=== PATIENT | female | born 1985 | race Caucasian/White ===

== ENCOUNTER → 2016-08-03 | Outpatient (CLI) | payer BC | END | disposition home or self-care (01) | LOC: LABWHC1 10:20 | PROVIDERS: ATTEND Internal Medicine | DX: E03.9 Hypothyroidism, unspecified (principal) | CPT/HCPCS: 36415; 84439; 84443 ==

== ENCOUNTER → 2016-10-04 | Outpatient (CLI) | payer BC ==
--- NOTE | 2016-10-04 16:35 | US ---
EXAMINATION TYPE: US thyroid st tissue head/neck DATE OF EXAM: 10/04/2016 4:06 PM COMPARISON: NONE CLINICAL HISTORY: E04.1 Thyroid Nodule. GLAND SIZE: Right Lobe: 2.3 x 0.5 x 1.0 cm Overall Parenchyma: heterogenous Left Lobe: 1.4 x 0.3 x 0.6 cm Overall Parenchyma: heterogeneous Isthmus Thickness: 0.3 cm NODULES RIGHT: # of nodules measured on right: 0 LEFT: # of nodules measured on left: 0 ISTHMUS: # of nodules measured in the isthmus: 1 1. 0.9 X 0.4 x 0.8 cm anechoic cystic nodule at the right pole with poorly defined margins. This n odule is wider than tall and shows intranodular vascularity. no prior Bilateral neck scanned, no evidence of lymphadenopathy, small bilateral lobes. IMPRESSION: 1. Subcentimeter thyroid nodule isthmus.
== END | disposition home or self-care (01) ==
LOC: RADUSMAIN 15:44
PROVIDERS: ATTEND Family Medicine
DX: E04.1 Nontoxic single thyroid nodule (principal)
CPT/HCPCS: 76536

== ENCOUNTER → 2016-12-22 | Outpatient (CLI) | payer BC | END | disposition home or self-care (01) | LOC: LABWHC1 11:27 | PROVIDERS: ATTEND Internal Medicine | DX: E89.0 Postprocedural hypothyroidism (principal) | CPT/HCPCS: 36415; 84443 ==

== ENCOUNTER → 2017-03-02 | Outpatient (CLI) | payer BC | END | disposition home or self-care (01) | LOC: LABWHC1 13:02 | PROVIDERS: ATTEND Internal Medicine | DX: E89.0 Postprocedural hypothyroidism (principal) | CPT/HCPCS: 36415; 84443 ==

== ENCOUNTER → 2017-04-09 | Outpatient (CLI) | payer BC ==
--- NOTE | 2017-04-09 21:21 | MR ---
EXAMINATION TYPE: MR brain/cspine wo DATE OF EXAM: 04/09/2017 COMPARISON: MRI brain April 11, 2016. MRI cervical spine same date. 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 TECHNIQUE: Multiplanar, multisequence imaging of the cervical spine, brain and brainstem are all perf ormed without IV contrast. FINDINGS: BRAIN: Diffusion weighted images demonstrate no evidence of a recent infarct or other diffusion abnormality. There is no extraaxial fluid collection or significant white matter signal abnormality. The ventricu lar system and cisternal spaces are normal in size and appearance. The brain volume is age appropria te. Midline structures demonstrate normal morphology. Artifact from low occipital postsurgical change or Chiari decompression is redemonstrated. The craniocervical junction remains within normal limits. Th ere remains somewhat small caliber distal vertebral artery. There are patent posterior communicating arteries noted bilaterally. The globes are intact bilaterally. Mild mucosal thickening involving ethm oid sinuses is seen bilaterally. Moderate mucosal thickening in left maxillary sinus redemonstrated. There is mild mucosal thickening in right maxillary sinus redemonstrated. There is new small air-flui d level in left maxillary sinus noted. IMPRESSION: Postsurgical changes from successful Chiari decompression surgery are redemonstrated. The re is persistent chronic paranasal sinus disease, new mild acute left maxillary sinusitis cannot be e xcluded. Clinical correlation advised. C-SPINE: FINDINGS: Sagittal images of the cervical spine show the craniocervical junction to remain within nor mal limits after posterior decompression. The cervical and upper thoracic spinal cord is normal in c aliber and course. There is redemonstration of syrinx from inferior C5 level through mid T1 level fe lt unchanged in size and appearance from prior. Vertebral alignment is satisfactory and stable. The vertebral body and intravertebral disk heights are normal. No large posterior disc herniations are p resent. The bone marrow signal intensity is within normal limits. No significant spurring is seen. Axial images show the C2-C3, C3-C4, C4-C5 levels to remain within normal limits. Axial images at C5-C6 level show broad disc bulge minimally effacing anterior thecal sac and causing asymmetric mild left-sided neural foraminal narrowing, right-sided neural foramen is patent. Syrinx a t this level noted. Axial images at C6-C7 and C7-T1 level show continuation of syrinx which is more prominent at these le vels but unchanged from prior study. Bilateral neural foramina are patent. No significant disc hernia tion is present. Similar prior study thyroid gland is not well-visualized. There is cystic lesion anteriorly just righ t of midline on axial image 5 Measuring 10 x 3 mm stable or slightly less prominent versus prior stud y. Correlate clinically. IMPRESSION: Stable small to moderate length syrinx and small disc herniation C5-C6 level.
== END | disposition home or self-care (01) ==
LOC: RADMRIMAIN 19:39
PROVIDERS: ATTEND Neurological Surgery
DX: Q07.9 Congenital malformation of nervous system, unspecified (principal); M50.222 Other cervical disc displacement at C5-C6 level; Z98.890 Other specified postprocedural states
CPT/HCPCS: 70551; 72141

== ENCOUNTER → 2017-04-10 | Outpatient (CLI) | payer BC ==
--- NOTE | 2017-04-10 21:01 | MR ---
EXAMINATION TYPE: MR delatorre wo con DATE OF EXAM: 04/10/2017 8:53 PM COMPARISON: 05/15/2016 HISTORY: follow up for syrinx Multiplanar MultiSpin echo imaging of the thoracic spine was performed. Disc spaces: No evidence for herniation protrusion or significant degenerative disc disease. Spinal canal: No evidence for canal stenosis. No intrinsic or extrinsic lesion. Thoracic spinal cord: Again noted is a 3 mm in thickness syrinx which extends from T7 through T10 unc hanged from prior examination. There is no evidence for underlying mass. Previously described cervica l syrinx noted. Paraspinal soft tissues: No evidence for paraspinal mass. No destructive lesions seen. Vertebral segments: T9 hemangioma identified. No evidence for compression fracture. IMPRESSION: 1. Stable thoracic syrinx. EXAMINATION TYPE: MR delatorre wo con DATE OF EXAM: 04/10/2017 8:53 PM COMPARISON: 05/15/2016 HISTORY: follow up for syrinx Multiplanar, MultiSpin echo imaging of the lumbar spine was performed. L1-L2: Normal disc appearance without desiccation. No herniation, protrusion or disc bulging. No ca nal stenosis is present. Foramina are patent bilaterally. L2-L3: Normal disc appearance without desiccation. No herniation, protrusion or disc bulging. No ca nal stenosis is present. Foramina are patent bilaterally. L3-L4: Normal disc appearance without desiccation. Mild posterocentral disc bulge without herniation protrusion or central stenosis. Foramina are patent bilaterally. No canal stenosis is present. Halle rosalba are patent bilaterally. L4-L5: Normal disc appearance without desiccation. No herniation, protrusion or disc bulging. No ca nal stenosis is present. Foramina are patent bilaterally. L5-S1: Normal disc appearance without desiccation. No herniation, protrusion or disc bulging. No ca nal stenosis is present. Foramina are patent bilaterally. Lumbar segments are intact. No paraspinal masses are identified. Conus medullaris has a normal appe arance. IMPRESSION: 1. Mild disc bulging posterocentrally at L3-4.
== END | disposition home or self-care (01) ==
LOC: RADMRIMAIN 19:41
PROVIDERS: ATTEND Neurological Surgery
DX: Q07.9 Congenital malformation of nervous system, unspecified (principal); M51.26 Other intervertebral disc displacement, lumbar region
CPT/HCPCS: 72146; 72148

== ENCOUNTER → 2017-08-18 | Outpatient (CLI) | payer BC | END | disposition home or self-care (01) | LOC: LABWHC1 12:36 | PROVIDERS: ATTEND Internal Medicine | DX: E89.0 Postprocedural hypothyroidism (principal) | CPT/HCPCS: 36415; 84443 ==

== ENCOUNTER → 2017-12-19 | Outpatient (CLI) | payer BC | END | disposition home or self-care (01) | LOC: LABWHC1 12:57 | PROVIDERS: ATTEND Internal Medicine | DX: E89.0 Postprocedural hypothyroidism (principal) | CPT/HCPCS: 36415; 84443 ==

== ENCOUNTER 2018-04-30 10:20 | Emergency (ER) | payer BC ==
[2018-04-30] MEDS ORDERED: MORPHINE SULFATE 2 MG/ML SYRINGE IVP STA (11:28)
--- NOTE | 2018-04-30 11:29 | ED ---
General Adult HPI - General Chief complaint: Back Pain/Injury Stated complaint: middle back pain, numbness in legs Time Seen by Provider: 04/30/18 10:50 Source: patient, RN notes reviewed Mode of arrival: ambulatory Limitations: no limitations - History of Present Illness Initial comments: This is a 33-year-old female who presents to the emergency department complaining of having a fever starting last Sunday and she believes it broke over the weekend even though she wasn't feeling back to her baseline she did not believe she had a fever. Patient states she's had body aches for about 3-4 days particularly in her back. Patient states she has a past medical history of having a surgery for Chiari Arnold malformation. And she always has some body aches because of this. Patient states as of last night she had a fever again 101. Patient states she took Tylenol this morning. Patient states she went to an urgent care yesterday and they saw a few white cells in the urine so they gave her a shot of antibiotics but did not send her home with any antibiotics. Patient states today she continues to have myalgias everywhere but in particular in her mid back. She denies any areas of numbness or weakness. Patient does complain of a headache as well. Patient has some stiffness in her neck but is able to move with full range of motion. Patient denies any chest pain or difficulty breathing. Patient denies any cough. Patient denies any abdominal pain patient denies nausea vomiting diarrhea. Patient denies any dysuria hematuria urinary frequency. - Related Data Home Medications Medication Instructions Recorded Confirmed Levothyroxine Sodium [Synthroid] 100 mcg PO MOTUWETHFRSA 04/30/18 04/30/18 Levothyroxine Sodium [Synthroid] 200 mcg PO GARAY 04/30/18 04/30/18 Allergies Allergy/AdvReac Type Severity Reaction Status Date / Time No Known Allergies Allergy Verified 04/30/18 10:59 Review of Systems ROS Statement: Those systems with pertinent positive or pertinent negative responses have been documented in the HPI. ROS Other: All systems not noted in ROS Statement are negative. Past Medical History Past Medical History: Thyroid Disorder Additional Past Medical History / Comment(s): hypothyroidism History of Any Multi-Drug Resistant Organisms: None Reported Past Surgical History: No Surgical Hx Reported Additional Past Surgical History / Comment(s): brain surgery in 2015, radiation to thyroid in march 2016 Past Psychological History: No Psychological Hx Reported Smoking Status: Never smoker Past Alcohol Use History: Occasional Past Drug Use History: Marijuana General Exam - General Exam Comments Initial Comments: GENERAL: Patient is well-developed and well-nourished. Patient is nontoxic and well- hydrated and is in mild distress. ENT: Neck is soft and supple. No significant lymphadenopathy is noted. Oropharynx is clear. Moist mucous membranes. Neck has full range of motion it does elicit some pain in the trapezius muscles area patient also is pain to palpation of the muscles but she does have full range of motion. EYES: The sclera were anicteric and conjunctiva were pink and moist. Extraocular movements were intact and pupils were equal round and reactive to light. Eyelids were unremarkable. PULMONARY: Unlabored respirations. Good breath sounds bilaterally. No audible rales rhonchi or wheezing was noted. CARDIOVASCULAR: There is a regular rate and rhythm without any murmurs gallops or rubs. ABDOMEN: Soft and nontender with normal bowel sounds. No palpable organomegaly was noted. There is no palpable pulsatile mass. SKIN: Skin is clear with no lesions or rashes and otherwise unremarkable. NEUROLOGIC: Patient is alert and oriented x3. Cranial nerves II through XII are grossly intact. Motor and sensory are also intact. Normal speech, volume and content. Symmetrical smile. MUSCULOSKELETAL: Normal extremities with adequate strength and full range of motion. LYMPHATICS: No significant lymphadenopathy is noted PSYCHIATRIC: Normal psychiatric evaluation. Normal interpersonal interactions appears functionally intact in deals appropriately with others. No signs of depression. No signs of anxiety. Limitations: no limitations Course Vital Signs 04/30/18 04/30/18 04/30/18 10:42 12:01 12:10 Temperature 98.1 F Pulse Rate 91 76 Respiratory 18 26 H 11 L Rate Blood Pressure 118/80 128/85 O2 Sat by Pulse 100 100 Oximetry 04/30/18 04/30/18 04/30/18 12:11 12:20 12:30 Temperature Pulse Rate 74 73 77 Respiratory 16 12 11 L Rate Blood Pressure 128/85 128/85 128/85 O2 Sat by Pulse 97 100 99 Oximetry 04/30/18 04/30/18 04/30/18 12:40 12:50 13:00 Temperature Pulse Rate 74 Respiratory 12 Rate Blood Pressure 128/85 128/85 128/85 O2 Sat by Pulse 100 Oximetry 04/30/18 04/30/18 04/30/18 13:10 13:20 13:30 Temperature Pulse Rate Respiratory Rate Blood Pressure 128/85 128/85 128/85 O2 Sat by Pulse Oximetry 04/30/18 04/30/18 15:57 16:11 Temperature 98.6 F 98.6 F Pulse Rate 79 79 Respiratory 20 20 Rate Blood Pressure 133/90 133/90 O2 Sat by Pulse 99 99 Oximetry Medical Decision Making - Medical Decision Making EKG shows normal sinus rhythm at 75 bpm NH interval is 138 QRS is 82 QT interval 380 QTC is 424. EKG shows no ST segment elevation or depression or T wave abnormalities are noted. CT of the brain shows no acute abnormality. Chest x-ray shows no acute normalities. I spoke with the nurse for Dr. Bao cameron at [facility] her neurosurgeon. They did not think from my description that the fever and back pain was related in any way to the patient's previous surgery or congenital abnormality Patient got some relief from morphine and Toradol is but she was still having pain secondary another shot of morphine. Patient continued to have pain after the morphine I suggested the patient stay but she wanted to go home because she had pain meds and muscle relaxants at home that she wanted to take. Patient is having no neurologic deficit this time. - Lab Data Result diagrams: 04/30/18 12:11 04/30/18 12:11 Lab Results 04/30/18 04/30/18 04/30/18 Range/Units 12:11 12:11 12:11 WBC 6.1 (3.8-10.6) k/uL RBC 4.59 (3.80-5.40) m/uL Hgb 13.3 (11.4-16.0) gm/dL Hct 40.2 (34.0-46.0) % MCV 87.8 (80.0-100.0) fL MCH 29.0 (25.0-35.0) pg MCHC 33.0 (31.0-37.0) g/dL RDW 13.5 (11.5-15.5) % Plt Count 199 (150-450) k/uL Neutrophils % (Manual) 49 % Band Neutrophils % 1 % Lymphocytes % (Manual) 40 % Monocytes % (Manual) 8 % Eosinophils % (Manual) 2 % Neutrophils # (Manual) 3.00 (1.3-7.7) k/uL Lymphocytes # (Manual) 2.44 (1.0-4.8) k/uL Monocytes # (Manual) 0.49 (0-1.0) k/uL Eosinophils # (Manual) 0.12 (0-0.7) k/uL Nucleated RBCs 0 (0-0) /100 WBC Manual Slide Review Performed Reactive Lymphocytes Present RBC Morphology Normal PT (9.0-12.0) sec INR (<1.2) APTT (22.0-30.0) sec Sodium 139 (137-145) mmol/L Potassium 4.0 (3.5-5.1) mmol/L Chloride 105 (98-107) mmol/L Carbon Dioxide 26 (22-30) mmol/L Anion Gap 8 mmol/L BUN 12 (7-17) mg/dL Creatinine 0.93 (0.52-1.04) mg/dL Est GFR (CKD-EPI)AfAm >90 (>60 ml/min/1.73 sqM) Est GFR (CKD-EPI)NonAf 82 (>60 ml/min/1.73 sqM) Glucose 86 (74-99) mg/dL Plasma Lactic Acid Carlos (0.7-2.0) mmol/L Calcium 9.0 (8.4-10.2) mg/dL Total Bilirubin 0.6 (0.2-1.3) mg/dL AST 36 (14-36) U/L ALT 40 (9-52) U/L Alkaline Phosphatase 55 (38-126) U/L Total Protein 6.3 (6.3-8.2) g/dL Albumin 3.6 (3.5-5.0) g/dL Urine Color Urine Appearance (Clear) Urine pH (5.0-8.0) Ur Specific Chase (1.001-1.035) Urine Protein (Negative) Urine Glucose (UA) (Negative) Urine Ketones (Negative) Urine Blood (Negative) Urine Nitrite (Negative) Urine Bilirubin (Negative) Urine Urobilinogen (<2.0) mg/dL Ur Leukocyte Esterase (Negative) Urine RBC (0-5) /hpf Urine WBC (0-5) /hpf Ur Squamous Epith Cells (0-4) /hpf Urine Bacteria (None) /hpf Urine Mucus (None) /hpf Influenza Type A RNA Not Detected (Not Detectd) Influenza Type B (PCR) Not Detected (Not Detectd) 04/30/18 04/30/18 04/30/18 Range/Units 12:11 12:11 12:11 WBC (3.8-10.6) k/uL RBC (3.80-5.40) m/uL Hgb (11.4-16.0) gm/dL Hct (34.0-46.0) % MCV (80.0-100.0) fL MCH (25.0-35.0) pg MCHC (31.0-37.0) g/dL RDW (11.5-15.5) % Plt Count (150-450) k/uL Neutrophils % (Manual) % Band Neutrophils % % Lymphocytes % (Manual) % Monocytes % (Manual) % Eosinophils % (Manual) % Neutrophils # (Manual) (1.3-7.7) k/uL Lymphocytes # (Manual) (1.0-4.8) k/uL Monocytes # (Manual) (0-1.0) k/uL Eosinophils # (Manual) (0-0.7) k/uL Nucleated RBCs (0-0) /100 WBC Manual Slide Review Reactive Lymphocytes RBC Morphology PT 9.7 (9.0-12.0) sec INR 1.0 (<1.2) APTT 25.5 (22.0-30.0) sec Sodium (137-145) mmol/L Potassium (3.5-5.1) mmol/L Chloride (98-107) mmol/L Carbon Dioxide (22-30) mmol/L Anion Gap mmol/L BUN (7-17) mg/dL Creatinine (0.52-1.04) mg/dL Est GFR (CKD-EPI)AfAm (>60 ml/min/1.73 sqM) Est GFR (CKD-EPI)NonAf (>60 ml/min/1.73 sqM) Glucose (74-99) mg/dL Plasma Lactic Acid Carlos 1.1 (0.7-2.0) mmol/L Calcium (8.4-10.2) mg/dL Total Bilirubin (0.2-1.3) mg/dL AST (14-36) U/L ALT (9-52) U/L Alkaline Phosphatase (38-126) U/L Total Protein (6.3-8.2) g/dL Albumin (3.5-5.0) g/dL Urine Color Yellow Urine Appearance Cloudy H (Clear) Urine pH 6.0 (5.0-8.0) Ur Specific Chase 1.027 (1.001-1.035) Urine Protein 1+ H (Negative) Urine Glucose (UA) Negative (Negative) Urine Ketones Negative (Negative) Urine Blood Trace H (Negative) Urine Nitrite Negative (Negative) Urine Bilirubin Negative (Negative) Urine Urobilinogen <2.0 (<2.0) mg/dL Ur Leukocyte Esterase Trace H (Negative) Urine RBC 1 (0-5) /hpf Urine WBC 2 (0-5) /hpf Ur Squamous Epith Cells 32 H (0-4) /hpf Urine Bacteria Moderate H (None) /hpf Urine Mucus Few H (None) /hpf Influenza Type A RNA (Not Detectd) Influenza Type B (PCR) (Not Detectd) Disposition Clinical Impression: Myalgia Disposition: HOME SELF-CARE Instructions: Musculoskeletal Pain (ED) Is patient prescribed a controlled substance at d/c from ED?: No Referrals: Juan Francisco Maldonado MD [Primary Care Provider] - 1-2 days Time of Disposition: 15:44
[2018-04-30] MEDS ORDERED: ACETAMINOPHEN TAB 500 MG TAB PO STA (11:33)
[2018-04-30] MEDS: SODIUM CHLORIDE 0.9% 500 ML 500 ML IV SCH ×3 (12:10→13:35)
[2018-04-30] MEDS ORDERED: ONDANSETRON 4 MG/2 ML VIAL IVP STA (12:26)
--- NOTE | 2018-04-30 12:56 | XR ---
EXAMINATION TYPE: XR chest 2V DATE OF EXAM: 04/30/2018 COMPARISON: 09/16/2014 HISTORY: Chest pain TECHNIQUE: Frontal and lateral views of the chest are obtained. FINDINGS: There is no focal air space opacity. No evidence for pneumothorax. No pleural effusion. The cardiac silhouette size is within normal limits. The osseous structures are grossly intact. IMPRESSION: 1. No acute cardiopulmonary process.
[2018-04-30 12:57] LABS: Appearance,Urine Cloudy (Clear); Bacteria,Urine Moderate /hpf; Bilirubin,Urine Negative (Negative); Blood,Urine Trace (Negative); Color,Urine Yellow; Glucose,Urine (UA) Negative (Negative); Ketones,Urine Negative (Negative); Leukocyte Esterase,Urine Trace (Negative); Mucus,Urine Few /hpf; Nitrite,Urine Negative (Negative); Protein,Urine 1+ (Negative); RBC,Urine 1 /hpf (0-5); Specific Gravity,Urine 1.027 (1.001-1.035); Squamous Epithelial Cell,Urine 32 /hpf (0-4); Urobilinogen,Urine <2.0 mg/dL (<2.0); WBC,Urine 2 /hpf (0-5)
[2018-04-30 12:58] LABS: Partial Thromboplastin Time 25.5 sec (22.0-30.0); Prothrombin Time 9.7 sec (9.0-12.0)
--- NOTE | 2018-04-30 12:59 | CT ---
EXAMINATION TYPE: CT brain wo con DATE OF EXAM: 04/30/2018 COMPARISON: None HISTORY: Severe headache and neck pain CT DLP: 1060.[address] of the brain was performed. The ventricles, basal cisterns and sulci overlying the cerebral convexities demonstrate a normal appe arance. There is no evidence for intracranial hemorrhage or sulcal effacement. No mass effects are seen. Osseous calvarium is free of fracture. Occipital decompressive craniotomy changes noted. If symptoms persist consider MRI as clinically warranted. IMPRESSION: 1. No acute intracranial process is seen at this time.
[2018-04-30 13:00] LABS: HCT 40.2 % (34.0-46.0); HGB 13.3 gm/dL (11.4-16.0); MCV 87.8 fL (80.0-100.0); Mean Platelet Volume 6.7; Platelet Count 199 k/uL (150-450); RBC 4.59 m/uL (3.80-5.40); RDW 13.5 % (11.5-15.5); WBC 6.1 k/uL (3.8-10.6)
[2018-04-30 13:02] LABS: ALT 40 U/L (9-52); AST 36 U/L (14-36); Albumin 3.6 g/dL (3.5-5.0); Alkaline Phosphatase 55 U/L (38-126); Anion Gap 8 mmol/L; Blood Urea Nitrogen 12 mg/dL (7-17); Carbon Dioxide 26 mmol/L (22-30); Chloride 105 mmol/L (98-107); Glucose 86 mg/dL (74-99); Sodium 139 mmol/L (137-145); Total Bilirubin 0.6 mg/dL (0.2-1.3); Total Protein 6.3 g/dL (6.3-8.2)
[2018-04-30 13:13] LABS: Band Neutrophils % 1 %; Eosinophils # (M) 0.12 k/uL (0-0.7); Lymphocytes # (M) 2.44 k/uL (1.0-4.8); Monocytes # (M) 0.49 k/uL (0-1.0); Neutrophils % (M) 49 %; Nucleated Red Blood Cells 0 /100 WBC (0-0); Total Cells Counted 100
[2018-04-30 13:20] LABS: Reactive Lymphocytes Present
[2018-04-30] MEDS ORDERED: MORPHINE SULFATE 4 MG/ML SYRINGE IVP STA (14:00)
[2018-04-30 15:58] VITALS: BP 133/90; PULSE 79; RESP 20; TEMP 98.6
--- NOTE | 2018-05-03 02:50 | CDI ---
Dear Steve Oro MD: Please do addendum Disposition. Thank you, Jane Toledo, Local Delivery Driver. If you have any questions, please contact Agricultural Service Worker at [phone]. [facility]
== END 2018-04-30 16:11 | disposition home or self-care (01) ==
LOC: EC 10:20
DX: M79.10 Myalgia, unspecified site (principal); R50.9 Fever, unspecified; E03.9 Hypothyroidism, unspecified; Z79.899 Other long term (current) drug therapy; Z87.728 Personal history of other specified (corrected) congenital malformations of nervous system and sense organs
CPT/HCPCS: 99285; 96374; 96375; 96376; 96361 ×3; 36415; 93005; 80053; 83605; 85025; 85610; 85730; 81001; 87040; 87086; 87502; 71046; 70450; J2270 ×2; J2405

== ENCOUNTER → 2018-05-02 | Outpatient (CLI) | payer BC ==
--- NOTE | 2018-05-02 16:51 | MR ---
EXAMINATION TYPE: MR brain wo/w con DATE OF EXAM: 05/02/2018 COMPARISON: 04/09/2017 HISTORY: Headaches Arnold-Chiari syndrome TECHNIQUE: Multiplanar, multisequence images of the brain and brainstem is performed without and with IV contras t, utilizing 6 mL intravenous . Gadolinium FINDINGS: Ventricles of normal size. There is no hydrocephalus. There is no midline shift. There is n o sign of intracranial hemorrhage. There is occipital craniotomy defect related to Chiari malformatio n surgery. Cerebellum is intact. There is mucosal thickening in the maxillary sinuses. There is no ev idence of cortical infarct. Corpus callosum appears normal. Sella turcica is normal. The brainstem is intact. There is normal contrast opacification of the venous sinuses. I see no pathologic enhancemen t. There is no evidence of orbital mass. IMPRESSION: Postsurgical changes. Brain appears stable compared to old exam. No complicating process. There is improvement in the maxillary sinusitis compared to old exam.
== END ==
LOC: RADMRIMAIN 15:46
PROVIDERS: ATTEND Family Medicine
DX: Q07.00 Arnold-Chiari syndrome without spina bifida or hydrocephalus (principal); Z98.890 Other specified postprocedural states
CPT/HCPCS: 70553; A9585

== ENCOUNTER → 2020-05-21 | Outpatient (CLI) | payer BC | END | disposition home or self-care (01) | LOC: LABWHC1 13:14 | PROVIDERS: ATTEND Family Medicine | DX: R05 Cough (principal); R51.9 Headache, unspecified; R19.7 Diarrhea, unspecified; R09.89 Other specified symptoms and signs involving the circulatory and respiratory systems; M79.10 Myalgia, unspecified site | CPT/HCPCS: 87502; U0003; C9803 ==

== ENCOUNTER → 2021-01-07 | Outpatient (CLI) | payer BC | END | disposition home or self-care (01) ==

== ENCOUNTER 2022-02-27 11:22 | Emergency (ER) | payer BC ==
[2022-02-27] MEDS ORDERED: ACETAMINOPHEN TAB 325 MG TAB PO STA (11:47)
--- NOTE | 2022-02-27 11:52 | ED ---
General Adult HPI - General Chief complaint: Head Injury Stated complaint: head injury, history of brain surgery Time Seen by Provider: 02/27/22 11:38 Source: patient, family, RN notes reviewed, old records reviewed Mode of arrival: ambulatory Limitations: no limitations - History of Present Illness Initial comments: This is a well-appearing 37-year-old female, alert and oriented the presents to the emergency room after hitting the top of her head on the ceiling while going up the basement stairs with laundry today. She states that she did not lose consciousness or fall. She states it is painful to touch. She is tearful and stuttering. Family at bedside states that the stuttering is new. She has a history of Chiari malformation with surgery in 2016. She has a history of hypothyroidism. She denies any alcohol or drug use and is a nonsmoker. She states that she eats healthy. She has never had stuttering before. -: hour(s) (2) Location: head Radiation: non-radiation Severity scale (1-10): 8 Quality: aching Consistency: constant Improves with: none Associated Symptoms: other (stutter) Treatments Prior to Arrival: none - Related Data Home Medications Medication Instructions Recorded Confirmed Levothyroxine Sodium [Synthroid] 100 mcg PO MOTUWETHFRSA 04/30/18 04/30/18 Levothyroxine Sodium [Synthroid] 200 mcg PO GARAY 04/30/18 04/30/18 Allergies Allergy/AdvReac Type Severity Reaction Status Date / Time No Known Allergies Allergy Verified 02/27/22 11:29 Review of Systems ROS Statement: Those systems with pertinent positive or pertinent negative responses have been documented in the HPI. ROS Other: All systems not noted in ROS Statement are negative. Past Medical History Past Medical History: Thyroid Disorder Additional Past Medical History / Comment(s): chiari malformation; hypothyroidism History of Any Multi-Drug Resistant Organisms: None Reported Past Surgical History: No Surgical Hx Reported Additional Past Surgical History / Comment(s): brain surgery in 2015, radiation to thyroid in march 2016 Past Psychological History: No Psychological Hx Reported Smoking Status: Never smoker Past Alcohol Use History: Occasional Past Drug Use History: Marijuana General Exam Limitations: no limitations General appearance: alert, in no apparent distress Head exam: Present: other (1 cm hematoma midparietal scalp) Expanded Head exam: Absent: laceration, abrasion, raccoon eyes, ny's sign, general tenderness, tenderness of temporal artery, CSF rhinorrhea, CSF otorrhea Eye exam: Present: PERRL, EOMI. Absent: scleral icterus, nystagmus, periorbital swelling, periorbital tenderness ENT exam: Present: normal exam, normal oropharynx, mucous membranes moist Neck exam: Present: normal inspection, full ROM. Absent: tenderness, meningismus, lymphadenopathy, thyromegaly Respiratory exam: Present: normal lung sounds bilaterally. Absent: respiratory distress, accessory muscle use Cardiovascular Exam: Present: regular rate GI/Abdominal exam: Present: soft Extremities exam: Present: full ROM, normal capillary refill. Absent: tenderness, pedal edema, joint swelling, calf tenderness Back exam: Absent: tenderness Neurological exam: Present: alert, oriented X3, CN II-XII intact Expanded Patient oriented to: Present: person, place, time Speech: Present: expressive aphasia (Stuttering) Cranial nerves: EOM's Intact: Normal, Gag Reflex: Normal, Tongue Deviation: Normal Cerebellar function: Finger to Nose: Normal, Heel to [place]: Normal Motor strength exam: RUE: 5, LUE: 5, RLE: 5, LLE: 5 Eye Response: (4) open spontaneously Motor Response: (6) obeys commands Verbal Response: (5) oriented Yamila Total: 15 Psychiatric exam: Present: anxious, other (tearful) Skin exam: Present: warm, dry, intact, normal color. Absent: cyanosis, diaphoretic, petechiae, pallor Course Vital Signs 02/27/22 02/27/22 11:25 13:18 Temperature 98.0 F 98.4 F Pulse Rate 71 78 Respiratory 20 18 Rate Blood Pressure 160/97 121/84 O2 Sat by Pulse 100 97 Oximetry Medical Decision Making - Medical Decision Making Patient states that she was walking up the stairs with laundry today and hit the top of her head on the ceiling. She did not fall or lose consciousness. She has tenderness to the mid parietal scalp on palpation. No evidence of laceration or abrasion. Family is concerned for an intracranial process after her hitting her head on the ceiling going up the stairs this morning and new onset of stuttering. CT was ordered after discussion with Dr. Mcgowan which shows CT shows no acute intracranial process. There are postop changes to the foramen magnum status post Chiari malformation surgery. No evidence of depressed skull fracture. No mass or midline shift noted. On physical exam there are no focal neurological deficits. Vital signs are stable. Patient will be instructed to follow-up with her primary care doctor and neurology. Return to the emergency room with any new or concerning symptoms. Patient and family are agreeable to this plan of care. Disposition Clinical Impression: Head injury Disposition: HOME SELF-CARE Condition: Good Instructions (If sedation given, give patient instructions): Head Injury (ED) Additional Instructions: Follow-up with your primary care doctor this week. Return to the emergency room with any new or concerning symptoms. Tylenol and or Motrin as needed for pain. Is patient prescribed a controlled substance at d/c from ED?: No Referrals: Ella Hammer MD [Primary Care Provider] - 1-2 days Time of Disposition: 13:04
[2022-02-27] MEDS ORDERED: ALPRAZolam 0.5 MG TAB PO STA (11:53)
--- NOTE | 2022-02-27 12:32 | CT ---
EXAMINATION TYPE: CT brain wo con CT DLP: 1039.4 mGycm, Automated exposure control for dose reduction was used. DATE OF EXAM: 02/27/2022 12:24 PM COMPARISON: CT brain 04/30/2018. CLINICAL INDICATION:Female, 37 years old with history of new onset stuttering after hitting head, Str uck head on ceiling, stuttering after. History of Chiari malformation with surgery TECHNIQUE: Brain: Axial CT images of the brain were obtained with coronal and sagittal reformats created and rev iewed. Contrast used: None. Oral contrast used: None. FINDINGS: Brain: Extra-axial spaces: No abnormal extra-axial fluid collections. Ventricular system: Within normal limits Cerebral parenchyma: No acute intraparenchymal hemorrhage or mass effect. The jiménez-white junction is well differentiated. Cerebellum: Unremarkable. Mass effect: No evidence of midline shift. Intracranial vasculature: unremarkable Soft tissues: Normal. Calvarium/osseous structures: No depressed skull fracture. Postsurgical changes of the foramen magnum . Paranasal sinuses and mastoid air cells: Mild scattered paranasal sinus disease. Visualized orbits: Orbital contents are intact. IMPRESSION: 1. No acute intracranial process. 2. Postop changes to the foramen magnum.
[2022-02-27 13:19] VITALS: BP 121/84; PULSE 78; RESP 18; TEMP 98.4
== END 2022-02-27 13:24 | disposition home or self-care (01) ==
LOC: EC 11:22
DX: S00.03XA Contusion of scalp, initial encounter (principal); E03.9 Hypothyroidism, unspecified; F12.90 Cannabis use, unspecified, uncomplicated; Z79.890 Hormone replacement therapy; W22.8XXA Striking against or struck by other objects, initial encounter
CPT/HCPCS: 70450; 99283

== ENCOUNTER → 2024-06-20 | Outpatient (CLI) | payer BC ==
--- NOTE | 2024-06-20 14:55 | CT ---
EXAMINATION TYPE: CT foot LT wo con DATE OF EXAM: 06/20/2024 COMPARISON: None CLINICAL INDICATION: Female, 39 years old with history of M79.672 PAIN IN LEFT FOOT; PH[facility], LT Large to e fracture in March. Having pain in LT foot. CT DLP: 229.9 mGycm Automated exposure control for dose reduction was used. FINDINGS: There is nonunion of small minimally displaced intra-articular fractures of the base of the distal pi gtail distal aspect of the proximal phalanx of the big toe Remaining osseous structures are intact. The soft tissues are unremarkable. 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 IMPRESSION: [facility], , 06/20/2024 2:52 PM
== END | disposition home or self-care (01) ==
LOC: RADCTMAIN 14:01
PROVIDERS: ATTEND Podiatrist
DX: S92.492A Other fracture of left great toe, initial encounter for closed fracture (principal); X58.XXXA Exposure to other specified factors, initial encounter